=== PATIENT | female | born 1970 | race Caucasian/White ===

== ENCOUNTER 2016-05-01 09:34 | Emergency (ER) | payer BC ==
[2016-05-01 10:55] VITALS: BP 123/73
--- NOTE | 2016-05-01 11:22 | UC ---
Throat Pain/Nasal Sigifredo HPI - HPI Summary HPI Summary: Patient has had two weeks of sinus pressure, now here eyes feel full and she has swelling under the right eye. mright maxiallary sinus pressure. sore throat and cough. - History of Current Complaint Chief Complaint: UCGeneralIllness Stated Complaint: HEAD CONGESTION, EAR PAIN Time Seen by Provider: 05/01/16 11:01 Hx Obtained From: Patient Hx Last Menstrual Period: s/p Uterine Ablation ?: No Onset/Duration: Sudden Onset, Lasting Weeks Severity: Moderate Pain Intensity: 6 Pain Scale Used: 0-10 Numeric Cough: Nonproductive Associated Signs & Symptoms: Positive: Dysphagia, Wheezing, Sinus Discomfort, Nasal Discharge - Epiglottits Risk Factors Epiglottis Risk Factors: Negative - Allergies/Home Medications Allergies/Adverse Reactions: Allergies Allergy/AdvReac Type Severity Reaction Status Date / Time Penicillins Allergy Severe Hives Verified 05/01/16 10:50 Sulfa Antibiotics AdvReac Nausea Verified 05/01/16 10:50 Home Medications: Home Medications Conjugated Estrogens-Medroxypr [Prempro] 1 tab PO DAILY 05/01/16 [History Confirmed 05/01/16] PMH/Surg Hx/FS Hx/Imm Hx Previously Healthy: Yes Respiratory History Of: Reports: Asthma - Surgical History Surgical History: Yes Surgery Procedure, Year, and Place: Bilateral Oopherectomy and Tubes, 03/08/16, [place]; [place], 2012, [place]; Uterine Ablation, 2008, [place]; Tonsillectomy, 1996, [place]; Appendectomy, 1993, [place] - Family History Known Family History: Positive: None, Cardiac Disease, Hypertension, Diabetes - Social History Alcohol Use: Occasionally Substance Use Type: None Smoking Status (MU): Never Smoked Tobacco Have You Smoked in the Last Year: Yes - Immunization History Most Recent Influenza Vaccination: February 2016 Review of Systems Constitutional: Fatigue Skin: Negative Eyes: Negative, Other - fullness in eyes ENT: Sore Throat, Ear Ache, Nasal Discharge Respiratory: Cough Cardiovascular: Negative Gastrointestinal: Negative Genitourinary: Negative Motor: Negative Neurovascular: Negative Musculoskeletal: Negative Neurological: Headache Psychological: Negative All Other Systems Reviewed And Are Negative: Yes Physical Exam Triage Information Reviewed: Yes Appearance: Well-Nourished, Ill-Appearing, Pain Distress Vital Signs: Initial Vital Signs Temp 98.9 F 05/01/16 10:48 Pulse 90 05/01/16 10:48 Resp 18 05/01/16 10:48 BP 123/73 05/01/16 10:48 Pulse Ox 99 05/01/16 10:48 Vital Signs Reviewed: Yes Eye Exam: Normal Eyes: Positive: Other: - slight swelling of lids ENT: Positive: Pharyngeal erythema, Nasal congestion, Nasal drainage, Other: - swelling and pain over the right maxillary sinus Dental Exam: Normal Neck exam: Normal Neck: Positive: Supple, Nontender, Enlarged Nodes @ - left tonsillar Respiratory Exam: Normal Respiratory: Positive: Chest non-tender, Lungs clear, Normal breath sounds Cardiovascular Exam: Normal Cardiovascular: Positive: RRR, No Murmur, Pulses Normal Abdominal Exam: Normal Abdomen Description: Positive: Nontender, No Organomegaly, Soft Bowel Sounds: Positive: Present Musculoskeletal Exam: Normal Musculoskeletal: Positive: Strength Intact, ROM Intact, No Edema Neurological Exam: Normal Neurological: Positive: Alert, Muscle Tone Normal Psychological Exam: Normal Skin Exam: Normal Throat Pain/Nasal Course/Dx - Course Course Of Treatment: history obtained, exam performed, medications reviewed. treated for sinustitis, - Differential Dx/Diagnosis Differential Diagnosis/HQI/PQRI: Influenza, Laryngitis, Otitis Media, Pharyngitis, Sinusitis, Tonsillitis, URI Provider Diagnoses: sinusitis. maxillary sinus pressure. sore throat Discharge - Discharge Plan Condition: Stable Disposition: HOME Patient Education Materials: Sinusitis (ED) Additional Instructions: Take the medication as prescribed. increase your fluid intake and get plenty of rest. follow up as needed.
== END 2016-05-01 11:26 | disposition home or self-care (01) ==
LOC: UCCORT 09:34
DX: J32.9 Chronic sinusitis, unspecified (principal); J02.9 Acute pharyngitis, unspecified; J45.909 Unspecified asthma, uncomplicated; Z88.0 Allergy status to penicillin; Z88.2 Allergy status to sulfonamides
CPT/HCPCS: 99212; G0463

== ENCOUNTER 2016-07-19 14:47 | Emergency (ER) | payer BC ==
[2016-07-19 15:47] VITALS: BP 114/62
[2016-07-19] MEDS ORDERED: Acetaminophen TAB* 325 MG PO ONE (16:01)
[2016-07-19] MEDS ORDERED: Ondansetron ODT TAB* 4 MG PO ONE (16:01)
--- NOTE | 2016-07-19 16:01 | UC ---
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 at this time took 400 mg of ibuprofen at 1600 today - History of Current Complaint Chief Complaint: UCGeneralIllness Stated Complaint: THROAT,HUANG,FEVER Time Seen by Provider: 07/19/16 15:57 Hx Last Menstrual Period: ABLATION - Allergies/Home Medications Allergies/Adverse Reactions: Allergies Allergy/AdvReac Type Severity Reaction Status Date / Time Penicillins Allergy Severe Hives Verified 07/19/16 15:47 Sulfa Antibiotics AdvReac Nausea Verified 07/19/16 15:47 Home Medications: Home Medications Fexofenadine-Pseudoephedrine [Gnp Allergy-D 12 Hour All 60-120 mg] 1 tab PO BID 07/19/16 [History Confirmed 07/19/16] PMH/Surg Hx/FS Hx/Imm Hx Previously Healthy: Yes Respiratory History Of: Reports: Asthma - Surgical History Surgical History: Yes Surgery Procedure, Year, and Place: Bilateral Oopherectomy and Tubes, 03/08/16, [place]; [place], 2012, [place]; Uterine Ablation, 2008, [place]; Tonsillectomy, 1996, [place]; Appendectomy, 1993, [place] - Family History Known Family History: Positive: None, Cardiac Disease, Hypertension, Diabetes - Social History Alcohol Use: Occasionally Substance Use Type: None Smoking Status (MU): Never Smoked Tobacco Have You Smoked in the Last Year: Yes - Immunization History Most Recent Influenza Vaccination: February 2016 Review of Systems Constitutional: Fever Skin: Negative Eyes: Negative ENT: Sore Throat Respiratory: Negative Cardiovascular: Negative Gastrointestinal: Negative Genitourinary: Negative Motor: Negative Neurovascular: Negative Musculoskeletal: Negative Neurological: Negative Psychological: Negative All Other Systems Reviewed And Are Negative: Yes Physical Exam Triage Information Reviewed: Yes Appearance: No Pain Distress, Well-Nourished, Ill-Appearing Vital Signs: Initial Vital Signs Temp 100.6 F 07/19/16 15:42 Pulse 111 07/19/16 15:42 Resp 16 07/19/16 15:42 BP 114/62 07/19/16 15:42 Pulse Ox 97 07/19/16 15:42 Vital Signs Reviewed: Yes Eyes: Positive: Conjunctiva Clear ENT: Positive: Pharyngeal erythema, TMs normal. Negative: Nasal congestion, Nasal drainage Neck: Positive: No Lymphadenopathy Respiratory: Positive: Lungs clear, Normal breath sounds, No respiratory distress, No accessory muscle use Cardiovascular: Positive: No Murmur, Pulses Normal, Brisk Capillary Refill, Tachycardia Abdomen Description: Positive: Nontender, No Organomegaly, Soft. Negative: CVA Tenderness (R), CVA Tenderness (L), Distended, Guarding Bowel Sounds: Positive: Present Musculoskeletal: Positive: No Edema Neurological: Positive: Alert Psychological Exam: Normal Skin Exam: Normal Throat Pain/Nasal Course/Dx - Course Course Of Treatment: exam completed. postivei for strep infection. willtreat with clarithromycin d/t allergy to PCN - Differential Dx/Diagnosis Differential Diagnosis/HQI/PQRI: Influenza, Pharyngitis, Tonsillitis Provider Diagnoses: strep pharyngitis Discharge - Discharge Plan Condition: Stable Disposition: HOME Prescriptions: Clarithromycin TAB* [Biaxin 500 MG TAB*] 500 mg PO BID #20 tab Fluconazole 100 MG TAB* [Diflucan 100 MG TAB*] 100 mg PO DAILY #1 tab Patient Education Materials: Strep Throat (ED) Referrals: Gina Rosado MD [Primary Care Provider] - Additional Instructions: Please take antibiotic as directed Increase fluids and rest Take acetaminophen or ibuprofen for fever or pain Please review your discharge instructions. If your symptoms do not improve please call your primary care provider or return to urgent care.
== END 2016-07-19 16:48 | disposition home or self-care (01) ==
LOC: UCCORT 14:47
DX: J02.0 Streptococcal pharyngitis (principal); J45.909 Unspecified asthma, uncomplicated; Z88.0 Allergy status to penicillin; Z88.2 Allergy status to sulfonamides
CPT/HCPCS: 87651; 99212; A9270-GY; G0463

== ENCOUNTER 2016-08-24 15:27 | Emergency (ER) | payer BC ==
[2016-08-24 16:34] VITALS: BP 122/81
--- NOTE | 2016-08-24 17:05 | UC ---
Complaint Female HPI - HPI Summary HPI Summary: THREE DAYS OF URINARY PRESSURE, FREQUENCY. NO BACK PAIN. NO ABDOMINAL PAIN. NO FEVER. LAST UTI MANY YEARS AGO. - History Of Current Complaint Chief Complaint: UCGU Stated Complaint: URINARY Time Seen by Provider: 08/24/16 16:30 Hx Obtained From: Patient Hx Last Menstrual Period: ABLATION Onset/Duration: Gradual Onset, Lasting Days, Still Present Timing: Intermittent Severity Initially: Moderate Severity Currently: Moderate Character: Dull Aggravating Factor(s): Urination Associated Signs And Symptoms: Positive: Back Pain. Negative: Fever, Nausea, Vomiting(# Of Episodes =) - Risk Factors Ectopic Risk Factor: Negative Ovarian Torsion Risk Factor: Negative - Allergies/Home Medications Allergies/Adverse Reactions: Allergies Allergy/AdvReac Type Severity Reaction Status Date / Time Penicillins Allergy Severe Hives Verified 07/19/16 15:47 Sulfa Antibiotics AdvReac Nausea Verified 07/19/16 15:47 PMH/Surg Hx/FS Hx/Imm Hx Previously Healthy: Yes Respiratory History Of: Reports: Asthma - Surgical History Surgical History: Yes Surgery Procedure, Year, and Place: Bilateral Oopherectomy and Tubes, 03/08/16, [place]; [place], 2012, [place]; Uterine Ablation, 2008, [place]; Tonsillectomy, 1996, [place]; Appendectomy, 1993, [place] - Family History Known Family History: Positive: None, Cardiac Disease, Hypertension, Diabetes - Social History Occupation: Employed Full-time Lives: With Family Alcohol Use: Occasionally Substance Use Type: None Smoking Status (MU): Never Smoked Tobacco Have You Smoked in the Last Year: Yes - Immunization History Most Recent Influenza Vaccination: February 2016 Review of Systems Constitutional: Negative Skin: Negative Eyes: Negative ENT: Negative Respiratory: Negative Cardiovascular: Negative Gastrointestinal: Negative Genitourinary: Dysuria, Frequency, Urgency Motor: Negative Neurovascular: Negative Musculoskeletal: Negative Neurological: Negative Psychological: Negative All Other Systems Reviewed And Are Negative: Yes Physical Exam Triage Information Reviewed: Yes Appearance: Well-Appearing, No Pain Distress, Well-Nourished Vital Signs: Initial Vital Signs Temp 97.7 F 08/24/16 16:30 Pulse 108 08/24/16 16:30 Resp 16 08/24/16 16:30 BP 122/81 08/24/16 16:30 Pulse Ox 100 08/24/16 16:30 Vital Signs Reviewed: Yes Eye Exam: Normal ENT Exam: Normal ENT: Positive: Normal ENT inspection, Hearing grossly normal, Pharynx normal, TMs normal Dental Exam: Normal Neck exam: Normal Neck: Positive: Supple, Nontender, No Lymphadenopathy Respiratory Exam: Normal Respiratory: Positive: Chest non-tender, Lungs clear, Normal breath sounds, No respiratory distress, No accessory muscle use Cardiovascular Exam: Normal Cardiovascular: Positive: RRR, No Murmur, Pulses Normal Abdominal Exam: Normal Abdomen Description: Positive: Nontender, No Organomegaly. Negative: CVA Tenderness (R), CVA Tenderness (L) Musculoskeletal Exam: Normal Musculoskeletal: Positive: Strength Intact, ROM Intact Neurological Exam: Normal Psychological Exam: Normal Skin Exam: Normal Complaint Female Dx - Differential Dx/Diagnosis Differential Diagnosis/HQI/PQRI: Urinary Tract Infection Provider Diagnoses: URINARY TRACT INFECTION Discharge - Discharge Plan Condition: Stable Disposition: HOME Prescriptions: Ciprofloxacin TAB* [Cipro 500 MG TAB*] 500 mg PO BID #10 tab Phenazopyridine TAB* [Pyridium 100 mg TAB*] 100 mg PO TID #15 tab Patient Education Materials: Urinary Tract Infection in Women (ED) Referrals: Gina Rosado MD [Primary Care Provider] -
== END 2016-08-24 17:07 | disposition home or self-care (01) ==
LOC: UCCORT 15:27
DX: N39.0 Urinary tract infection, site not specified (principal); J45.909 Unspecified asthma, uncomplicated; Z88.0 Allergy status to penicillin; Z88.2 Allergy status to sulfonamides
CPT/HCPCS: 81003; 87086; 99212; G0463

== ENCOUNTER 2017-02-11 09:04 | Emergency (ER) | payer BC ==
[2017-02-11 09:32] VITALS: BP 114/69
--- NOTE | 2017-02-11 09:52 | UC ---
Dizzy HPI HPI Summary: dizziness x 2 days cold sx for 5 days with nasal congestion , pnd, cough , left ear pain no fever , no chills + nausea, no vomiting , no abd pain - History Of Current Complaint Chief Complaint: UCEar Stated Complaint: EAR PAIN,SORE THROAT,HEADACHE Time Seen by Provider: 02/11/17 09:26 Hx Obtained From: Patient Hx Last Menstrual Period: ABLATION ?: No Onset/Duration: Gradual Onset, Lasting Days - 2, Still Present Timing: Constant Severity Initially: Moderate Severity Currently: Moderate Character: Room Spinning, Lightheaded, Dizzy Aggravating Factor(s): Position Change Alleviating Factor(s): Rest Associated Signs And Symptoms: Positive: Nausea. Negative: Vomiting, Diaphoresis, Tinnitus, Chest Pain, SOB, Palpitations, Unsteady Gait, Visual Changes, Decreased Oral Intake, Change In Medication, Change In Diet, OTC Medications - Allergies/Home Medications Allergies/Adverse Reactions: Allergies Allergy/AdvReac Type Severity Reaction Status Date / Time Penicillins Allergy Severe Hives Verified 02/11/17 09:28 Sulfa Antibiotics AdvReac Nausea Verified 02/11/17 09:28 PMH/Surg Hx/FS Hx/Imm Hx Previously Healthy: Yes - Surgical History Surgical History: Yes Surgery Procedure, Year, and Place: Bilateral Oopherectomy and Tubes, 03/08/16, [place]; [place], 2012, [place]; Uterine Ablation, 2008, [place]; Tonsillectomy, 1996, [place]; Appendectomy, 1993, [place] - Family History Known Family History: Positive: None, Cardiac Disease, Hypertension, Diabetes - Social History Alcohol Use: Occasionally Substance Use Type: None Smoking Status (MU): Never Smoked Tobacco Have You Smoked in the Last Year: Yes - Immunization History Most Recent Influenza Vaccination: Not the 2017/2017 Season Review of Systems Constitutional: Negative Skin: Negative Eyes: Negative ENT: Nasal Discharge Respiratory: Cough Cardiovascular: Negative Neurological: Weakness Is Patient Immunocompromised?: No All Other Systems Reviewed And Are Negative: Yes Physical Exam Triage Information Reviewed: Yes Appearance: Well-Appearing, No Pain Distress, Well-Nourished Vital Signs: Initial Vital Signs Temp 97.8 F 02/11/17 09:27 Pulse 68 02/11/17 09:27 Resp 16 02/11/17 09:27 BP 114/69 02/11/17 09:27 Pulse Ox 100 02/11/17 09:27 Vital Signs Reviewed: Yes Eyes: Positive: Conjunctiva Clear ENT: Positive: Normal ENT inspection, Hearing grossly normal, Pharynx normal, Nasal congestion, Nasal drainage, TMs normal. Negative: TM bulging, TM dull, TM red Neck exam: Normal Neck: Positive: Supple, Nontender, No Lymphadenopathy Respiratory: Positive: Chest non-tender, Lungs clear, Normal breath sounds, No respiratory distress Cardiovascular: Positive: RRR, No Murmur, Pulses Normal Musculoskeletal Exam: Normal Neurological: Positive: Alert Skin Exam: Normal Dizzy Course/Dx - Differential Dx/Diagnosis Provider Diagnoses: vertigo Discharge - Discharge Plan Condition: Stable Disposition: HOME Prescriptions: Meclizine TAB* [Antivert 12.5 TAB*] 25 mg PO TID PRN #21 tab PRN Reason: Vertigo Patient Education Materials: Vertigo (ED) Referrals: Gina Rosado MD [Primary Care Provider] - 7 Days
== END 2017-02-11 09:59 | disposition home or self-care (01) ==
LOC: UCCORT 09:04
DX: R42 Dizziness and giddiness (principal); Z88.1 Allergy status to other antibiotic agents; Z88.2 Allergy status to sulfonamides
CPT/HCPCS: 99212; G0463

== ENCOUNTER 2017-03-13 10:41 | Emergency (ER) | payer BC ==
[2017-03-13 13:34] VITALS: BP 114/68
--- NOTE | 2017-03-13 13:44 | UC ---
Throat Pain/Nasal Sigifredo HPI - HPI Summary HPI Summary: C/O sinus pain in the maxillary sinuses with tooth pain, eye pain and ear pain. Chills, low grade temps. - History of Current Complaint Chief Complaint: UCGeneralIllness Stated Complaint: SINUS COMPLAINT Hx Obtained From: Patient Hx Last Menstrual Period: ablation Onset/Duration: Gradual Onset, Lasting Days - 4, Worse Since - onset Severity: Moderate Cough: None Associated Signs & Symptoms: Positive: Sinus Discomfort, Nasal Discharge Related History: Seasonal Allergies - Allergies/Home Medications Allergies/Adverse Reactions: Allergies Allergy/AdvReac Type Severity Reaction Status Date / Time Penicillins Allergy Severe Hives Verified 03/13/17 13:34 Sulfa Antibiotics AdvReac Nausea Verified 03/13/17 13:34 PMH/Surg Hx/FS Hx/Imm Hx Respiratory History: Asthma - Surgical History Surgical History: Yes Surgery Procedure, Year, and Place: Bilateral Oopherectomy and Tubes, 03/08/16, [place]; [place], 2012, [place]; Uterine Ablation, 2008, [place]; Tonsillectomy, 1996, [place]; Appendectomy, 1993, [place] - Family History Known Family History: Positive: Cardiac Disease, Hypertension, Diabetes - Social History Occupation: Employed Full-time Lives: With Family Alcohol Use: Occasionally Substance Use Type: None Smoking Status (MU): Never Smoked Tobacco Have You Smoked in the Last Year: No - Immunization History Most Recent Influenza Vaccination: none Review of Systems Constitutional: Chills ENT: Ear Ache, Sinus Congestion, Sinus Pain/Tenderness Neurological: Headache Is Patient Immunocompromised?: No All Other Systems Reviewed And Are Negative: Yes Physical Exam Triage Information Reviewed: Yes Appearance: No Pain Distress, Well-Nourished, Ill-Appearing Vital Signs: Initial Vital Signs Temp 98.6 F 03/13/17 13:30 Pulse 81 03/13/17 13:30 Resp 15 03/13/17 13:30 BP 114/68 03/13/17 13:30 Pulse Ox 98 03/13/17 13:30 Vital Signs Reviewed: Yes Eyes: Positive: Conjunctiva Clear ENT: Positive: Pharynx normal, Nasal congestion, TMs normal Neck exam: Normal Respiratory: Positive: Lungs clear, Wheezing - faint expiratory wheeze with coughing. Cardiovascular Exam: Normal Musculoskeletal Exam: Normal Neurological Exam: Normal Psychological Exam: Normal Skin Exam: Normal Throat Pain/Nasal Course/Dx - Differential Dx/Diagnosis Differential Diagnosis/HQI/PQRI: Laryngitis, Pharyngitis, Sinusitis, URI Provider Diagnoses: Allergic rhinitis. Acute sinusitis Discharge - Discharge Plan Condition: Stable Disposition: HOME Prescriptions: Cefdinir [Cefdinir 300 MG CAP] 300 mg PO BID #20 cap Montelukast Sodium TAB* [Singulair 10 MG TAB*] 10 mg PO BEDTIME #30 tab Patient Education Materials: Allergic Rhinitis (ED), Sinusitis (ED), Cefdinir ( By mouth), Montelukast (By mouth) Referrals: Gina Rosado MD [Primary Care Provider] - Additional Instructions: AlphaBeta LabsILMED SINUS RINSE: CHECK OUT AT [email or web address] Saline nasal wash helps with mucous, allergies and congestion. It can be used up to twice a day or only as needed. Use lukewarm tap water. It does not have to be sterilized or distilled water. Do 1/3 on each side and snort out of both nostrils. Repeat the process with 1/6 of the bottle on each side with snorting in between to finish the solution in the bottle
== END 2017-03-13 13:59 | disposition home or self-care (01) ==
LOC: UCCORT 10:41
DX: J30.9 Allergic rhinitis, unspecified (principal); J01.90 Acute sinusitis, unspecified; J45.909 Unspecified asthma, uncomplicated; Z88.0 Allergy status to penicillin; Z88.2 Allergy status to sulfonamides
CPT/HCPCS: 99212; G0463

== ENCOUNTER 2018-06-20 12:12 | Emergency (ER) | payer BC, OTHER ==
[2018-06-20 13:50] VITALS: BP 125/69
--- NOTE | 2018-06-20 14:04 | UC ---
General HPI - HPI Summary HPI Summary: Patient slipped on water at work and twisted her ankle which is fine but injured her right hand and wrist. 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 Meds: Reviewed. No numbness. - History of Current Complaint Chief Complaint: UCUpperExtremity Stated Complaint: WC-RT WRIST INJURY Time Seen by Provider: 06/20/18 13:49 Hx Last Menstrual Period: ablation Pain Intensity: 7 - Allergy/Home Medications Allergies/Adverse Reactions: Allergies Allergy/AdvReac Type Severity Reaction Status Date / Time Penicillins Allergy Hives Verified 06/20/18 13:45 Sulfa (Sulfonamide AdvReac GI Upset Verified 06/20/18 13:45 Antibiotics) PMH/Surg Hx/FS Hx/Imm Hx Previously Healthy: Yes - Surgical History Surgical History: Yes Surgery Procedure, Year, and Place: Bilateral Oopherectomy and Tubes, 03/08/16, [place]; [place], 2012, [place]; Uterine Ablation, 2008, [place]; Tonsillectomy, 1996, [place]; Appendectomy, 1993, [place] - Family History Known Family History: Positive: Cardiac Disease, Hypertension, Diabetes - Social History Alcohol Use: Occasionally Substance Use Type: None Smoking Status (MU): Never Smoked Tobacco Have You Smoked in the Last Year: No - Immunization History Most Recent Influenza Vaccination: none Review of Systems All Other Systems Reviewed And Are Negative: Yes Musculoskeletal: Positive: Other: - right wrist pain Physical Exam Triage Information Reviewed: Yes Appearance: Well-Appearing Vital Signs: Initial Vital Signs Temp 98.9 F 06/20/18 13:45 Pulse 87 06/20/18 13:45 Resp 15 06/20/18 13:45 BP 125/69 06/20/18 13:45 Pulse Ox 97 06/20/18 13:45 Vital Signs Reviewed: Yes Musculoskeletal: Positive: Other: - right wrist over 4th and 5th carpal bones - tenderness and edema. Limited ROM. Pain in lateral wrist. Diagnostics - Radiology wrist and hand xray Radiology Interpretation Completed By: Radiologist Summary of Radiographic Findings: No acute osseous injury for wrist or hand Course/Dx - Course Course Of Treatment: This is a 47 yr old with right wrist pain after a fall. Xray: Negative for wrist and hand. Dx: wrist sprain. Plan. Recommend ice, ibuprofen as needed for pain and swelling. Brace for comfort. If symptoms persist follow up with Dr. Rafa Gallegos workers compensation physician - Diagnoses Provider Diagnosis: Contusion of right wrist Discharge - Sign-Out/Discharge Documenting (check all that apply): Patient Departure All imaging exams completed and their final reports reviewed: Yes - Discharge Plan Condition: Good Disposition: HOME Referrals: Gina Rosado MD [Primary Care Provider] - Additional Instructions: Recommend ice, ibuprofen as needed for pain and swelling Brace for comfort If symptoms persist follow up with Dr. Rafa Gallegos workers compensation physician - Billing Disposition and Condition Condition: GOOD Disposition: Home
== END 2018-06-20 14:22 | disposition home or self-care (01) ==
LOC: UCCORT 12:12
DX: S60.211A Contusion of right wrist, initial encounter (principal); W01.0XXA Fall on same level from slipping, tripping and stumbling without subsequent striking against object, initial encounter; X50.0XXA Overexertion from strenuous movement or load, initial encounter; Y92.9 Unspecified place or not applicable
CPT/HCPCS: 99212; G0463

== ENCOUNTER 2018-10-13 10:18 | Emergency (ER) | payer BC, OTHER ==
[2018-10-13 11:25] VITALS: BP 110/58
--- NOTE | 2018-10-13 11:43 | UC ---
Throat Pain/Nasal Sigifredo HPI - HPI Summary HPI Summary: 48-year-old female comes in with a chief complaint of upper respiratory tract infection symptoms for more than a week. Patient's been having rhinorrhea which is green she has frontal sinus pressure. She has not been getting very much rhinorrhea out she says she feels like her sinuses are clogged. Recently started with left ear pain. No complaint of shortness of breath chest congestion. - History of Current Complaint Chief Complaint: UCRespiratory Stated Complaint: EAR ACHE Time Seen by Provider: 10/13/18 11:32 Hx Last Menstrual Period: ablation Pain Intensity: 5 - Allergies/Home Medications Allergies/Adverse Reactions: Allergies Allergy/AdvReac Type Severity Reaction Status Date / Time Penicillins Allergy Hives Verified 10/13/18 11:26 Sulfa (Sulfonamide AdvReac GI Upset Verified 10/13/18 11:26 Antibiotics) Home Medications: Home Medications Fexofenadine/Pseudoephedrine [Leticia-D 24 Hour Tablet] 1 each PO DAILY [History Confirmed 10/13/18] PMH/Surg Hx/FS Hx/Imm Hx Previously Healthy: Yes - Surgical History Surgical History: Yes Surgery Procedure, Year, and Place: Bilateral Oopherectomy and Tubes, 03/08/16, [place]; Plan[place] Wart, 2012, [place]; Uterine Ablation, 2008, [place]; Tonsillectomy, 1996, [place]; Appendectomy, 1993, [place] - Family History Known Family History: Positive: Cardiac Disease, Hypertension, Diabetes - Social History Alcohol Use: Occasionally Substance Use Type: None Smoking Status (MU): Never Smoked Tobacco Have You Smoked in the Last Year: No - Immunization History Most Recent Influenza Vaccination: none Review of Systems All Other Systems Reviewed And Are Negative: Yes Constitutional: Positive: Negative Skin: Positive: Negative Eyes: Positive: Negative ENT: Positive: Ear Ache, Nasal Discharge, Sinus Congestion, Sinus Pain/ Tenderness Respiratory: Positive: Negative Cardiovascular: Positive: Negative Gastrointestinal: Positive: Negative Motor: Positive: Negative Neurovascular: Positive: Negative Musculoskeletal: Positive: Negative Neurological: Positive: Negative Psychological: Positive: Negative Is Patient Immunocompromised?: No Physical Exam Triage Information Reviewed: Yes Appearance: Well-Appearing, No Pain Distress, Well-Nourished Vital Signs: Initial Vital Signs Temp 98.9 F 10/13/18 11:23 Pulse 77 10/13/18 11:23 Resp 14 10/13/18 11:23 BP 110/58 10/13/18 11:23 Pulse Ox 99 10/13/18 11:23 Vital Signs Reviewed: Yes Eye Exam: Normal Eyes: Positive: Conjunctiva Clear ENT: Positive: Pharyngeal erythema, Nasal congestion, Nasal drainage, TM bulging - LEFT WITHOUT FLUID OR ERYTHEMA Neck: Positive: Supple Respiratory: Positive: Lungs clear, Normal breath sounds, No respiratory distress Cardiovascular: Positive: RRR Musculoskeletal: Positive: Strength Intact, ROM Intact Neurological Exam: Normal Neurological: Positive: Alert, Muscle Tone Normal Psychological Exam: Normal Psychological: Positive: Age Appropriate Behavior Skin Exam: Normal Throat Pain/Nasal Course/Dx - Course Course Of Treatment: DISCUSSED VIRAL VERSES BACTERIAL INFECTION AND THE ROLE OF ANTIBIOTICS. THE PATIENT PREFERS TO BE ON ANTIBIOTICS AT THIS TIME. - Differential Dx/Diagnosis Provider Diagnosis: Sinusitis Discharge - Sign-Out/Discharge Documenting (check all that apply): Patient Departure All imaging exams completed and their final reports reviewed: No Studies - Discharge Plan Condition: Stable Disposition: HOME Prescriptions: DOXYcycline CAP(*) [DOXYcycline 100MG CAP(*)] 100 mg PO BID #20 cap Fluticasone NASAL SPRAY 50MCG* [Flonase NASAL SPRAY 50MCG*] 2 spray BOTH NARES DAILY #1 btl Patient Education Materials: Sinusitis (ED) Referrals: Gina Rosado MD [Primary Care Provider] - Additional Instructions: FOLLOW UP WITH YOUR DOCTOR IF NOT COMPLETELY IMPROVED. GET REEVALUATED SOONER IF WORSE OR ANY QUESTIONS OR CONCERNS. - Billing Disposition and Condition Condition: STABLE Disposition: Home
== END 2018-10-13 11:58 | disposition home or self-care (01) ==
LOC: UCCORT 10:18
DX: J32.9 Chronic sinusitis, unspecified (principal); Z88.0 Allergy status to penicillin; Z88.2 Allergy status to sulfonamides
CPT/HCPCS: 99212; G0463

== ENCOUNTER 2019-03-27 13:00 | Emergency (ER) | payer BC ==
[2019-03-27 13:36] VITALS: BP 123/68
--- NOTE | 2019-03-27 13:51 | UC ---
Throat Pain/Nasal Sigifredo HPI - HPI Summary HPI Summary: sore throat x 4 days fever, chills , body / joint pain dry cough , pt. 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 Negative: Sinus Discomfort, Vomiting, Rash - Allergies/Home Medications Allergies/Adverse Reactions: Allergies Allergy/AdvReac Type Severity Reaction Status Date / Time Penicillins Allergy Hives Verified 03/27/19 13:33 Sulfa (Sulfonamide AdvReac GI Upset Verified 03/27/19 13:33 Antibiotics) PMH/Surg Hx/FS Hx/Imm Hx Respiratory History: Asthma - Surgical History Surgical History: Yes Surgery Procedure, Year, and Place: Bilateral Oopherectomy and Tubes, 03/08/16, [place]; [place]art, 2012, [place]; Uterine Ablation, 2008, [place]; Tonsillectomy, 1996, [place]; Appendectomy, 1993, [place] - Family History Known Family History: Positive: Cardiac Disease, Hypertension, Diabetes - Social History Alcohol Use: Occasionally Substance Use Type: None Smoking Status (MU): Never Smoked Tobacco Have You Smoked in the Last Year: No - Immunization History Most Recent Influenza Vaccination: none Review of Systems All Other Systems Reviewed And Are Negative: Yes Constitutional: Positive: Fever, Chills, Fatigue Skin: Positive: Negative Eyes: Positive: Negative ENT: Positive: Sore Throat Respiratory: Positive: Cough Musculoskeletal: Positive: Arthralgia, Myalgia Is Patient Immunocompromised?: No Physical Exam Triage Information Reviewed: Yes Appearance: Well-Appearing, No Pain Distress, Well-Nourished Vital Signs: Initial Vital Signs Temp 98.6 F 03/27/19 13:32 Pulse 74 03/27/19 13:32 Resp 13 03/27/19 13:32 BP 123/68 03/27/19 13:32 Pulse Ox 99 03/27/19 13:32 Vital Signs Reviewed: Yes Eye Exam: Normal Eyes: Positive: Conjunctiva Clear ENT: Positive: Normal ENT inspection, Hearing grossly normal, Pharynx normal, TMs normal. Negative: Pharyngeal erythema, Tonsillar swelling, Tonsillar exudate Neck: Positive: Supple, Nontender, No Lymphadenopathy Respiratory: Positive: Chest non-tender, Lungs clear, Normal breath sounds, No respiratory distress Cardiovascular: Positive: RRR, No Murmur, Pulses Normal Skin Exam: Normal Throat Pain/Nasal Course/Dx - Differential Dx/Diagnosis Provider Diagnosis: Viral pharyngitis Discharge ED - Sign-Out/Discharge Documenting (check all that apply): Patient Departure All imaging exams completed and their final reports reviewed: No Studies - Discharge Plan Condition: Stable Disposition: HOME Referrals: Gina Rosado MD [Primary Care Provider] - - Billing Disposition and Condition Condition: STABLE Disposition: Home
[2019-03-27 14:07] LABS: Influenza A Molecular NEGATIVE (Negative); Influenza B Molecular NEGATIVE (Negative)
== END 2019-03-27 14:12 | disposition home or self-care (01) ==
LOC: UCCORT 13:00
DX: J02.9 Acute pharyngitis, unspecified (principal); J45.909 Unspecified asthma, uncomplicated; R53.83 Other fatigue; Z88.0 Allergy status to penicillin; Z88.2 Allergy status to sulfonamides
CPT/HCPCS: 87651; 99211; G0463

== ENCOUNTER 2019-05-18 15:33 | Emergency (ER) | payer BC ==
--- NOTE | 2019-05-18 16:00 | UC ---
UC General HPI - HPI Summary HPI Summary: 48 yo female c/o sinus pain / pressure / congestion x apprx 2 weeks no fever / chills has been treating with home remedies, but now c/o pain in upper teeth both sides mild cough, minimally productive no rash. no sob /cp / palpitations - History of Current Complaint Stated Complaint: SINUS COMPLAINT Hx Obtained From: Patient Hx Last Menstrual Period: ablation - Allergy/Home Medications Allergies/Adverse Reactions: Allergies Allergy/AdvReac Type Severity Reaction Status Date / Time Penicillins Allergy Hives Verified 05/18/19 16:02 Sulfa (Sulfonamide AdvReac GI Upset Verified 05/18/19 16:02 Antibiotics) PMH/Surg Hx/FS Hx/Imm Hx Previously Healthy: Yes - Surgical History Surgical History: Yes Surgery Procedure, Year, and Place: Bilateral Oopherectomy and Tubes, 03/08/16, [place]; [place]art, 2012, [place]; Uterine Ablation, 2008, [place]; Tonsillectomy, 1996, [place]; Appendectomy, 1993, [place] - Family History Known Family History: Positive: Cardiac Disease, Hypertension, Diabetes - Social History Alcohol Use: Occasionally Substance Use Type: None Smoking Status (MU): Never Smoked Tobacco Have You Smoked in the Last Year: No - Immunization History Most Recent Influenza Vaccination: none Review of Systems All Other Systems Reviewed And Are Negative: Yes Constitutional: Positive: Negative Skin: Positive: Negative Eyes: Positive: Negative ENT: Positive: Nasal Discharge, Sinus Congestion Respiratory: Positive: Other - see hpi Cardiovascular: Positive: Negative Gastrointestinal: Positive: Negative Genitourinary: Positive: Negative Motor: Positive: Negative Neurovascular: Positive: Negative Musculoskeletal: Positive: Negative Neurological: Positive: Negative Psychological: Positive: Negative Is Patient Immunocompromised?: No Physical Exam Triage Information Reviewed: Yes Appearance: Well-Nourished - sitting up, conversing easily looks a little tired but nad Vital Signs Reviewed: Yes Eye Exam: Normal ENT: Positive: Pharyngeal erythema - mild post pharyng redness, c/w post nasal drip, Nasal congestion, TM dull, Other - + swollen red nasal turbinates Neck exam: Normal Neck: Positive: Supple, Nontender, No Lymphadenopathy Respiratory Exam: Normal Respiratory: Positive: Chest non-tender, Lungs clear, Normal breath sounds, No respiratory distress, No accessory muscle use Cardiovascular Exam: Normal Cardiovascular: Positive: RRR, Pulses Normal, Brisk Capillary Refill Abdominal Exam: Normal Abdomen Description: Positive: Nontender Musculoskeletal Exam: Normal Neurological Exam: Normal - grossly nonfocal Psychological Exam: Normal - nad Skin Exam: Normal - no visible nor reported rash Course/Dx - Course Course Of Treatment: S/sx c/w sinusitis. Plans to travel by airplane next week. Reviewed coa / tx plan. Questions as posed answered to the best of my ability. - Diagnoses Provider Diagnosis: Sinusitis Discharge ED - Sign-Out/Discharge Documenting (check all that apply): Patient Departure All imaging exams completed and their final reports reviewed: No Studies - Discharge Plan Condition: Stable Disposition: HOME Prescriptions: Ciprofloxacin TAB* [Cipro 500 MG TAB*] 500 mg PO BID #20 tab Fluconazole 150 MG TAB* [Diflucan 150 MG TAB*] 150 mg PO DAILY #2 tablet Patient Education Materials: Sinusitis (ED) Referrals: Gina Rosado MD [Primary Care Provider] - - Billing Disposition and Condition Condition: STABLE Disposition: Home
[2019-05-18 16:04] VITALS: BP 119/69
== END 2019-05-18 16:26 | disposition home or self-care (01) ==
LOC: UCCORT 15:33
DX: J32.9 Chronic sinusitis, unspecified (principal); Z88.0 Allergy status to penicillin; Z88.2 Allergy status to sulfonamides
CPT/HCPCS: 99212; G0463

== ENCOUNTER 2019-08-03 09:12 | Emergency (ER) | payer BC ==
[2019-08-03 09:31] VITALS: BP 118/72
--- NOTE | 2019-08-03 09:57 | UC ---
Respiratory Complaint HPI - HPI Summary HPI Summary: 49 yo female with onset of seasonal allergies about 3 weeks ago now with 2 week hx of facial pressure and pain upper gum and tooth pain/sensitivity febrile yesterday bilateral otalgia states she gets sinusitis yearly spring time no cp or sob declines covid 19 testing - History of Current Complaint Chief Complaint: UCRespiratory Stated Complaint: HEADACHE,CONGESTION,BILAT EAR PAIN Time Seen by Provider: 08/03/19 09:40 Hx Obtained From: Patient Hx Last Menstrual Period: ablation Onset/Duration: Gradual Onset, Lasting Weeks Timing: Constant Severity Initially: Mild Severity Currently: Severe Pain Intensity: 8 Pain Scale Used: 0-10 Numeric Character: Cough: Nonproductive Aggravating Factors: Allergens Alleviating Factors: Nothing Associated Signs And Symptoms: Positive: Fever, Nasal Congestion, Sinus Discomfort Related History: Seasonal Allergies, Similar Episode/Dx as: - acute sinusitis - Allergies/Home Medications Allergies/Adverse Reactions: Allergies Allergy/AdvReac Type Severity Reaction Status Date / Time Penicillins Allergy Hives Verified 08/03/19 09:17 Sulfa (Sulfonamide AdvReac GI Upset Verified 08/03/19 09:17 Antibiotics) Home Medications: Home Medications DOXYcycline CAP(*) [DOXYcycline 100MG CAP(*)] 100 mg PO BID 7 Days #14 cap 08/02 [Rx] Fluconazole 150 MG (NF) [Diflucan 150 mg (NF)] 150 mg PO ONCE #2 tab 08/03/19 [ Rx] PMH/Surg Hx/FS Hx/Imm Hx Previously Healthy: Yes - Surgical History Surgical History: Yes Surgery Procedure, Year, and Place: Bilateral Oopherectomy and Tubes, 03/08/16, [place]; [place], 2012, [place]; Uterine Ablation, 2008, [place]; Tonsillectomy, 1996, [place]; Appendectomy, 1993, [place] - Family History Known Family History: Positive: Cardiac Disease, Hypertension, Diabetes - Social History Alcohol Use: Occasionally Substance Use Type: None Smoking Status (MU): Never Smoked Tobacco Have You Smoked in the Last Year: No - Immunization History Most Recent Influenza Vaccination: none Review of Systems All Other Systems Reviewed And Are Negative: Yes Constitutional: Positive: Fever, Fatigue Skin: Positive: Negative Eyes: Positive: Blurred Vision ENT: Positive: Dental Pain, Ear Ache, Nasal Discharge, Sinus Congestion, Sinus Pain/Tenderness Respiratory: Positive: Negative Cardiovascular: Positive: Negative Gastrointestinal: Positive: Negative Genitourinary: Positive: Negative Motor: Positive: Negative Neurovascular: Positive: Negative Musculoskeletal: Positive: Negative Neurological/Mental Status: Positive: Negative Psychological: Positive: Negative Physical Exam Triage Information Reviewed: Yes Appearance: Well-Appearing, No Pain Distress, Well-Nourished Vital Signs: Initial Vital Signs Temp 97.9 F 08/03/19 09:30 Pulse 78 08/03/19 09:30 Resp 16 08/03/19 09:30 BP 118/72 08/03/19 09:30 Pulse Ox 98 08/03/19 09:30 Vital Signs Reviewed: Yes Eyes: Positive: Conjunctiva Clear ENT: Positive: Hearing grossly normal, Nasal congestion, Nasal drainage, TM bulging, Sinus tenderness. Negative: Hoarse voice, Dental tenderness - marledly tender both max sinuses Neck: Positive: Supple, Nontender, No Lymphadenopathy Respiratory: Positive: Lungs clear, Normal breath sounds, No respiratory distress Cardiovascular: Positive: RRR, No Murmur Abdominal Exam: Normal Neurological: Positive: Alert Psychological Exam: Normal Skin Exam: Normal Respiratory Course/Dx - Differential Dx/Diagnosis Provider Diagnosis: Acute sinusitis, Seasonal allergic rhinitis Discharge ED - Sign-Out/Discharge Documenting (check all that apply): Patient Departure All imaging exams completed and their final reports reviewed: No Studies - Discharge Plan Condition: Stable Disposition: HOME Prescriptions: DOXYcycline CAP(*) [DOXYcycline 100MG CAP(*)] 100 mg PO BID 7 Days #14 cap Fluconazole 150 MG (NF) [Diflucan 150 mg (NF)] 150 mg PO ONCE #2 tab Patient Education Materials: Sinusitis (ED) Print Language: [place] Referrals: Gina Rosado MD [Primary Care Provider] - 4 Days (recheck in 4-7 days if not better) Additional Instructions: warm facial compresses saline nasal spray twice daily increase your flonase to 2 sprays each nostril twice daily - Billing Disposition and Condition Condition: STABLE Disposition: Home
== END 2019-08-03 10:03 | disposition home or self-care (01) ==
LOC: UCCORT 09:12
DX: J01.90 Acute sinusitis, unspecified (principal); J30.2 Other seasonal allergic rhinitis; H92.03 Otalgia, bilateral; Z88.0 Allergy status to penicillin; Z88.2 Allergy status to sulfonamides
CPT/HCPCS: 99212; G0463